=== PATIENT | female | born 1980 | race Caucasian/White ===

== ENCOUNTER 2016-12-02 17:00 | Emergency (ER) | payer OTHER ==
[~2016-12-02] VITALS: Ht 160 cm; Wt 61.7 kg
[2016-12-02 18:34] LABS: ASPARTATE AMINO TRANSFERASE 33 U/L (15-37); BLOOD UREA NITROGEN 24 mg/dL (7-18)
[2016-12-02] MEDS ORDERED: [UNRECOGNIZED DRUG - OTHER] PO (19:13)
[2016-12-02 19:55] VITALS: BP 134/76
== END 2016-12-02 20:09 | disposition home or self-care (01) ==
LOC: ED 19:45
DX: N18.9 Chronic kidney disease, unspecified (principal)
CPT/HCPCS: 36415; 80053; 81003; 83690; 84703; 85025; 87210; 87808; 99284